=== PATIENT | female | born 1995 | race Caucasian/White ===

== ENCOUNTER 2017-02-17 01:40 | Emergency (ER) | payer OTHER ==
[~2017-02-17] VITALS: Ht 172.7 cm; Wt 127.9 kg
[2017-02-17] MEDS ORDERED: PANTOPRAZOLE 40MG TABLETS (02:01)
[2017-02-17] MEDS ORDERED: PAROXETINE 40 MG (02:01)
[2017-02-17] MEDS ORDERED: KETOROLAC TROMETHAMINE 60 MG INJ IM ONE ×2 (02:15→02:31)
[2017-02-17 02:24] VITALS: BP 117/84
--- NOTE | 2017-02-17 02:27 | NUR ---
Patient discharged to home in stable conditon, ambulated out with steady gait. Written and verbal after care instructions given with RX. Patient verbalizes understanding of instructions.
== END 2017-02-17 02:28 | disposition home or self-care (01) ==
LOC: ER 01:46
DX: N94.6 Dysmenorrhea, unspecified (principal); K21.9 Gastro-esophageal reflux disease without esophagitis; Z88.2 Allergy status to sulfonamides
CPT/HCPCS: A4663; J1885